=== PATIENT | female | born 1990 | race Caucasian/White ===

== ENCOUNTER 2017-01-26 08:16 | Day surgery (SDC) | payer BC, OTHER ==
[~2017-01-26 08:16] MED LIST: LIDOCAINE HCL/EPINEPHRINE 50 ML VIAL IJ PRN; RINGER'S SOLUTION,LACTATED 1,000 ML IV PRN
[2017-01-26 08:34] LABS: Hematocrit 36.9 % (37.0-47.0); Hemoglobin 12.5 gm/dL (12.5-16.0); Mean Cell Volume 89.1 fl (78-100); Mean Corpuscular Hemoglobin 30.2 pg (27-31); Mean Corpuscular Hgb Conc 33.9 g/dl (32-36); Mean Platelet Volume 8.6 fl (6.0-9.5); Neutrophil # 2.8 K/mm3 (1.3-6.0); Neutrophil % 52.1 % (42-75.0); Platelet Count 328 K/mm3 (150-450); Red Blood Count 4.14 M/mm3 (4.2-5.4); Red Cell Distribution Width 13.5 % (11.5-14.0); White Blood Count 5.3 K/mm3 (4.0-10.5)
[2017-01-26] MEDS ORDERED: RINGER'S SOLUTION,LACTATED 1,000 ML IV ONE (08:42)
[2017-01-26] MEDS ORDERED: LIDOCAINE HCL/EPINEPHRINE 50 ML VIAL IJ ONE ×2 (10:00)
[2017-01-26] MEDS ORDERED: oxyCODONE HCL/ACETAMINOPHEN 1 TAB TABLET PO ONE (10:45)
[2017-01-26] MEDS ORDERED: IBUPROFEN 800 MG TABLET PO ONE (10:45)
[2017-01-26] MEDS ORDERED: RINGER'S SOLUTION,LACTATED 1,000 ML IV PRN (10:45)
--- NOTE | 2017-01-26 10:49 | OR ---
Operative Report - Dictated Report Narrative: Date of Procedure: 01/26/2017 PROCEDURE: 1. Removal of Mirena IUD 2. LEEP ANESTHESIA: General with IV sedation PREOPERATIVE DIAGNOSIS: 1. NICOLE 2 2. HGSIL 3. Positive high risk HPV POSTOPERATIVE DIAGNOSIS: 1. NICOLE 2 2. HGSIL 3. Positive high risk HPV SURGEON: Dariusz Zaragoza MD [employer] OPERATOR: Ana FINDINGS: Uterus retroverted. Mirena IUD string visible outside cervical os. Large cervix with no gross lesions except cervical ectropion. SPECIMEN: 1. Cervical cone with suture at 12 o'clock 2. 9 o'clock portion of cervical cone. 3. Post cone ECC DRAINS: None. URINE OUTPUT: not measured BLOOD LOSS: 5 mL. INTRAOPARATIVE IV FLUIDS: 700 ml. COMPLICATIONS: None. DETAILS OF PROCEDURE: The patient consented prior to the procedure and was taken to the operating room with SCDs on the lower extremities. She wanted to have her Mirena IUD removed, which we discussed was a possibility pre-operatively. She was then placed in the dorsal supine position. General anesthesia was induced and was successful. The patient was then repositioned in the dorsal lithotomy position. Exam under anesthesia noted a retroverted uterus with no adnexal mass. She was prepped with betadine and draped in the usual sterile fashion. A time out procedure was performed to confirm the correct patient for the correct procedure. An insulated speculum was placed into the vagina. The cervix was visualized. Vagina was prepped with betadine one more time. A stay suture of 0 Vicryl was placed at the lateral edge of the cervix at 3 and 9 o'clock position. These served to ligate the cervical branch of the uterine artery to help decrease the bleeding and also to provide traction for the procedure. The cervix was then stained with Lugol solution. Small non-staining area was noted near the cervical os. There was no gross lesion. The cervix was then infiltrated with 0.5% lidocaine with epinephrine at 12 o'clock, 3 o'clock, 6 o'clock, and 9 o'clock position. A total of 12 mL of lidocaine with epinephrine was used. A surgical electrical loop set at 60 for cut and 40 for coag was used to make a cervical cone biopsy. The specimen was removed in two pieces as labelled above. A post cone ECC was performed. The cervical crater was cauterized with a Bovie ball tip. Hemostasis was achieved. The cervix cone crater was further covered with Monsel solution. The area was completely hemostatic. The stay suture at 3 o 'clock and 9 o'clock was cut. The speculum was removed. The patient tolerated the procedure well. All counts were correct. The patient was awakened from anesthesia and taken to the recovery room in stable condition. Dariusz Zaragoza MD
[2017-01-26 11:56] VITALS: BP 112/54
== END 2017-01-26 08:17 | disposition home or self-care (01) ==
LOC: AMB 08:16
PROVIDERS: ATTEND Obstetrics & Gynecology
PROC: 0UPD7HZ Removal of Contraceptive Device from Uterus and Cervix, Via Natural or Artificial Opening (ICD-10-PCS; 2017-01-26)
PROC: 0UBC7ZX Excision of Cervix, Via Natural or Artificial Opening, Diagnostic (ICD-10-PCS; principal; 2017-01-26 09:15)
DX: D06.7 Carcinoma in situ of other parts of cervix (principal); R87.810 Cervical high risk human papillomavirus (HPV) DNA test positive; F98.8 Other specified behavioral and emotional disorders with onset usually occurring in childhood and adolescence; Z68.32 Body mass index [BMI] 32.0-32.9, adult; Z30.432 Encounter for removal of intrauterine contraceptive device